=== PATIENT | female | born 1935 | race Caucasian/White ===

== ENCOUNTER 2017-10-07 18:21 | Emergency (ER) | payer MEDICARE, OTHER ==
[2017-10-07 19:00] LABS: BASOPHIL % 0.5 % (0.0-0.4); Basophil (Absolute #) 0.04 (0-0.4); Eosinophil % 7.7 % (0.00-5.0); Eosinophil (Absolute #) 0.64 (0-0.5); Granulocytes % 50.5 % (36.0-66.0); Hematocrit 34.2 % (35-47); Hemoglobin 11.5 gm/dl (12.0-16.0); Lymphocyte (Absolute #) 2.64 (1.0-4.6); Lymphocytes % 31.7 % (24.0-44.0); Mean Cell Volume 97.2 fl (78-100); Mean Corpuscular Hgb Concent. 33.6 g/dl (32-36); Mean Platelet Volume 9.8 fl (6-9.5); Monocytes % 9.6 % (0.0-12.0); Platelet Count 308 K/mm3 (150-450); Red Blood Count 3.52 M/mm3 (4.1-5.4); Red Cell Distribution Width 13.8 % (11.5-14.0); White Blood Count 8.3 K/mm3 (4.0-10.5)
[2017-10-07 19:03] LABS: Mean Corpuscular Hemoglobin 32.6 pg (26-32)
[2017-10-07 19:29] LABS: ANION GAP 16.7 MEQ/L (5-15); BILIRUBIN,TOTAL 0.5 mg/dL (0.2-1.3); Calcium 10.1 mg/dL (8.4-10.2); Creatinine 1 2.2 mg/dL (0.52-1.04); Potassium 4.1 mmol/L (3.5-5.1); Total Protein 7.8 g/dL (6.3-8.2)
[2017-10-07 19:35] LABS: Appearance CLEAR (CLEAR); Bilirubin COLOR INTERFERENCE (NEGATIVE); Blood 50 Ery/ul (0-5); Glucose NEGATIVE (NEGATIVE); Ketones COLOR INTERFERENCE (NEGATIVE); Leukocyte Esterase COLOR INTERFERENCE (NEGATIVE); Nitrite COLOR INTERFERENCE (NEGATIVE); Protein,Urine Dip COLOR INTERFERENCE (Negative); Urobilinogen COLOR INTERFERENCE mg/dL (0-1)
[2017-10-07 19:36] LABS: Bacteria FEW /HPF (NEGATIVE); Epithelial Cells FEW /HPF (FEW); Hyaline Casts 0-2 /LPF (0-2); Mucus SLIGHT /HPF (NEGATIVE); WBC 0-2 /HPF (0-5)
--- NOTE | 2017-10-07 19:36 | ERPHSYRPT ---
- History of Present Illness Time Seen by Provider: 10/07/17 18:43 Source: patient Exam Limitations: clinical condition Patient Subjective Stated Complaint: Pt states "I am having trouble urinating." Triage Nursing Assessment: Pt alert and orietented X 3, skin pwd. Pt ambulates with a slow shuffling gait. PT denied any pain, denied any burning, denied any kidney problems. Physician History: PATIENT WITH A HISTORY OF HYPERTENSION COMPLAINS OF URINARY SYMPTOMS DRIBBLING X 2-3 DAYS, DENIES ABDOMINAL PAIN, FREQUENCY, URGENCY, DYSURIA, HEMATURIA, FLANK PAIN OR FEVER. HAS URINARY INCONTINENCE UPON COUGHING. Timing/Duration: day(s) Activites at Onset: none Quality: other (INCONTINENCE) Onset Location: unknown Severity of Pain-Max: none Severity of Pain-Current: none Sexual intercourse history: non-contributory Modifying Factors: Improves With: coughing, other (INCONTINENCE) Associated Symptoms: urinary frequency Allergies/Adverse Reactions: levofloxacin [From Levaquin] Allergy (Verified 01/11/16 14:38) Penicillins Allergy (Verified 01/11/16 14:38) levothyroxine sodium [From Synthroid] Adverse Reaction (Mild, Verified 01/11/16 14:38) Hives SWELLING OF MOUTH, TONGUE ET LIPS Home Medications: Amitriptyline HCl 10 mg [Elavil 10 mg] 3 tab PO HS 03/24/14 [History] Duloxetine HCl 30 mg [Cymbalta 30 MG Capsule] 30 mg PO DAILY 03/24/14 [ History] Lorazepam [Ativan] 0.5 mg PO TIDPRN PRN 03/24/14 [History] Omeprazole 20 MG [Prilosec 20 mg] 20 mg PO DAILY 03/24/14 [History] Propranolol HCl 80 mg PO HS 03/24/14 [History] Spironolactone 25 mg [Aldactone 25 MG] 25 mg PO DAILY 03/25/14 [History] Propranolol HCl 20 mg [Inderal 20 MG] 20 mg PO DAILY 01/11/16 [History] Hx Tetanus, Diphtheria Vaccination/Date Given: Yes Hx Influenza Vaccination/Date Given: Yes Hx Pneumococcal Vaccination/Date Given: No - Review of Systems Constitutional: No Fever, No Chills Eyes: No Symptoms Ears, Nose, & Throat: No Symptoms Respiratory: No Cough, No Dyspnea Cardiac: No Chest Pain, No Edema, No Syncope Abdominal/Gastrointestinal: No Abdominal Pain, No Nausea, No Vomiting, No Diarrhea Genitourinary Symptoms: Frequency, Hesitancy, Urgency, No Dysuria Musculoskeletal: No Symptoms, No Back Pain, No Neck Pain Skin: No Symptoms, No Rash Neurological: No Symptoms, No Dizziness, No Focal Weakness, No Sensory Changes Psychological: No Symptoms Endocrine: No Symptoms All Other Systems: Reviewed and Negative - Past Medical History Pertinent Past Medical History: Yes Neurological History: Stroke, TIA ENT History: No Pertinent History Cardiac History: Hypertension Respiratory History: Bronchitis, COPD Endocrine Medical History: Hypothyroidism Musculoskeletal History: Arthritis, Fractures GI Medical History: No Pertinent History History: No Pertinent History Psycho-Social History: No Pertinent History Female Reproductive Disorders: No Pertinent History - Past Surgical History Past Surgical History: Yes Neuro Surgical History: No Pertinent History Cardiac: No Pertinent History Respiratory: No Pertinent History Gastrointestinal: Appendectomy, Cholecystectomy Genitourinary: No Pertinent History Musculoskeletal: No Pertinent History Female Surgical History: No Pertinent History - Social History Smoking Status: Never smoker Exposure to second hand smoke: No Drug Use: none Patient Lives Alone: No - Female History Hx Now: No - Nursing Vital Signs Nursing Vital Signs: Initial Vital Signs Temperature 98.0 F 10/07/17 18:30 Pulse Rate 64 10/07/17 18:30 Respiratory Rate 16 10/07/17 18:30 Blood Pressure 181/77 10/07/17 18:30 O2 Sat by Pulse Oximetry 92 L 10/07/17 18:30 Pain Scale Pain Intensity 0 - Physical Exam General Appearance: no apparent distress, alert Eye Exam: PERRL/EOMI, eyes nml inspection Ears, Nose, Throat Exam: normal ENT inspection, TMs normal, pharynx normal, moist mucous membranes Neck Exam: normal inspection, non-tender, supple, full range of motion Respiratory Exam: normal breath sounds, lungs clear, No respiratory distress Cardiovascular Exam: regular rate/rhythm, normal heart sounds, normal peripheral pulses Gastrointestinal/Abdomen Exam: soft, normal bowel sounds (NONTENDER, NO SUPRAPUBIC DISTENTION), No tenderness, No mass Back Exam: normal inspection, normal range of motion, No CVA tenderness, No vertebral tenderness Extremity Exam: normal inspection, normal range of motion, pelvis stable Neurologic Exam: alert, oriented x 3, cooperative, manager field services II-XII nml as tested, normal mood/affect, sensation nml, No motor deficits Skin Exam: normal color, warm, dry Lymphatic Exam: No adenopathy SpO2 Interpretation: borderline oxygenation SpO2: 92 Oxygen Delivery: Room Air Ordered Tests: Active Orders 24 hr Category Date Time Status Catheter-Plato Zhang STAT Care 10/07/17 18:55 Active CBC W DIFF Stat Lab 10/07/17 18:58 Completed CMP Stat Lab 10/07/17 18:58 Received UA W/RFX UR CULTURE Stat Lab 10/07/17 19:18 Received Lab/Rad Data: Laboratory Result Diagrams 10/07/17 18:58 Laboratory Results 10/07/17 Range/Units 18:58 WBC 8.3 (4.0-10.5) K/mm3 RBC 3.52 L (4.1-5.4) M/mm3 Hgb 11.5 L (12.0-16.0) gm/dl Hct 34.2 L (35-47) % MCV 97.2 (78-100) fl MCH 32.6 H (26-32) pg MCHC 33.6 (32-36) g/dl RDW 13.8 (11.5-14.0) % Plt Count 308 (150-450) K/mm3 MPV 9.8 H (6-9.5) fl Gran % 50.5 (36.0-66.0) % Eos # (Auto) 0.64 H (0-0.5) Absolute Lymphs (auto) 2.64 (1.0-4.6) Absolute Monos (auto) 0.80 (0.0-1.3) Lymphocytes % 31.7 (24.0-44.0) % Monocytes % 9.6 (0.0-12.0) % Eosinophils % 7.7 H (0.00-5.0) % Basophils % 0.5 (0.0-0.4) % Absolute Granulocytes 4.20 (1.4-6.9) Basophils # 0.04 (0-0.4) - Progress Progress Note: 10/07/17 20:10 INSERTION OF ZHANG 12 ESTONIAN Counseled pt/family regarding: lab results, diagnosis, need for follow-up - Departure Time of Disposition: 20:25 Departure Disposition: Home Clinical Impression: ACUTE URINARY RETENTION Condition: Stable Critical Care Time: No Referrals: DHRUV GRIFFIN [Primary Care Provider] - Additional Instructions: CONSULT YOUR FAMILY PHYSICIAN FOR EVALUATION TOMORROW AND REFERRAL TO A UROLOGIST. YOU CAN ALSO CALL DR SAHU A UROLOGIST IN [place], CALL OFFICE . MAINTAIN ZHANG CATHETER WITH LEG BAG UNTIL EVALUATED BY FAMILY PHYSICIAN. HAVE ZHANG CATHETER REMOVED AT 4 DAYS.
[2017-10-07 21:02] VITALS: BP 187/81; PULSE 62; O2SAT 96
== END 2017-10-07 20:57 | disposition home or self-care (01) ==
LOC: ED 18:21
DX: R33.9 Retention of urine, unspecified (principal); Z79.899 Other long term (current) drug therapy
CPT/HCPCS: 36415; 51702; 80053; 81000; 85025; 99284

== ENCOUNTER 2020-12-22 14:39 | Emergency (ER) | payer MEDICARE, OTHER ==
[2020-12-22 14:50] VITALS: BP 178/86; PULSE 68; O2SAT 91
--- NOTE | 2020-12-22 14:51 | ERPHSYRPT ---
- History of Present Illness Time Seen by Provider: 12/22/20 14:50 Source: patient, EMS, [facility] records Exam Limitations: no limitations Patient Subjective Stated Complaint: Patient states she does not remember fall. EMS states patient fell at [facility]. Paperwork shows she was under her own walker. Staff at LT facility state she was unable to answer appropriately and that she hit her head on floor. Triage Nursing Assessment: Patient arrived to ED via EMS. Patient wearing c- collar, able to straighten legs and responds to commands. Patient has hematoma L upper forehead. Physician History: This is an 85-year-old female resident of [facility]. Patient was found under her walker that she uses at the [facility]. She was a bit confused after the fall. She has a left forehead hematoma. She also complained of some lower back pain and pelvic pain. She denies chest pain. She denies abdominal pain. She denies shortness of breath. Patient arrived to the emergency department with a c-collar in place. In the emergency department patient was alert and oriented and answering questions. She is also moving her lower extremities well. Occurred: just prior to arrival Reason for Fall: tripped (Appears to have tripped over her walker) Injuries/Pain Location: head, back, pelvis, lower Loss of Consciousness: unsure Allergies/Adverse Reactions: levofloxacin [From Levaquin] Allergy (Verified 12/22/20 14:54) Penicillins Allergy (Verified 12/22/20 14:54) levothyroxine sodium [From Synthroid] Adverse Reaction (Mild, Verified 12/22/20 14:54) Hives SWELLING OF MOUTH, TONGUE ET LIPS Home Medications: Acetaminophen with Codeine [Tylenol with Codeine #3 Tablet] 1 tab PO DAILY 12/22/20 [History] Amlodipine Besylate [Norvasc] 10 mg PO DAILY 12/22/20 [History] Aspirin EC 81 mg [Ecotrin 81 mg] 81 mg PO DAILY 12/22/20 [History] Atorvastatin Calcium [Lipitor 20MG Tablet] 20 mg PO DAILY 12/22/20 [History] Docusate Sodium 100 mg [Colace 100 MG] 100 mg PO BID 12/22/20 [History] Ferrous Sulfate 1 tab PO BID 12/22/20 [History] Hydralazine HCl 50 mg PO BID 12/22/20 [History] Lisinopril 10 mg [Zestril 10 MG] 10 mg PO DAILY 12/22/20 [History] Magnesium Oxide [Magnesium] 400 mg PO DAILY 12/22/20 [History] Metformin HCl 500 mg [Glucophage 500 MG] 500 mg PO BID 12/22/20 [History] Multivits,Th W-Fe,Other Min [Thera-M] 1 tab PO DAILY 12/22/20 [History] PANTOPRAZOLE 40 mg Tablet [Protonix 40MG Tablet] 40 mg PO DAILY 12/22/20 [History] Sertraline HCl 50 mg [Zoloft 50 mg Tablet] 50 mg PO DAILY 12/22/20 [History] Sitagliptin Phosphate [Januvia] 25 mg PO DAILY 12/22/20 [History] Sodium Bicarbonate 650 mg PO BID 12/22/20 [History] Hx Tetanus, Diphtheria Vaccination/Date Given: Yes Hx Influenza Vaccination/Date Given: Yes Hx Pneumococcal Vaccination/Date Given: No Travel Risk - International Travel Have you traveled outside of the country in past 3 weeks: No - Coronavirus Screening Are you exhibiting any of the following symptoms?: No Close contact with a COVID-19 positive Pt in past 14-21 Days: No - Vaccine Status Have you recieved a Covid-19 vaccination: (unknown) - Review of Systems Constitutional: No Symptoms Eyes: No Symptoms Ears, Nose, & Throat: No Symptoms Respiratory: No Symptoms Cardiac: No Symptoms Abdominal/Gastrointestinal: No Symptoms Genitourinary Symptoms: No Symptoms Musculoskeletal: Fall, Injury (Head lower back) Skin: No Symptoms Neurological: No Symptoms Psychological: No Symptoms Endocrine: No Symptoms Hematologic/Lymphatic: No Symptoms Immunological/Allergic: No Symptoms All Other Systems: Reviewed and Negative - Past Medical History Pertinent Past Medical History: Yes Neurological History: Stroke, TIA ENT History: No Pertinent History Cardiac History: Hypertension Respiratory History: Bronchitis, COPD Endocrine Medical History: Hypothyroidism Musculoskeletal History: Arthritis, Fractures GI Medical History: No Pertinent History History: No Pertinent History Psycho-Social History: No Pertinent History Female Reproductive Disorders: No Pertinent History - Past Surgical History Past Surgical History: Yes Neuro Surgical History: No Pertinent History Cardiac: No Pertinent History Respiratory: No Pertinent History Gastrointestinal: Appendectomy, Cholecystectomy Genitourinary: No Pertinent History Musculoskeletal: No Pertinent History Female Surgical History: No Pertinent History - Social History Smoking Status: Never smoker Exposure to second hand smoke: No Drug Use: none Patient Lives Alone: No - Female History Hx Now: No (age) - Nursing Vital Signs Nursing Vital Signs: Initial Vital Signs Temperature 97.4 F 12/22/20 14:40 Pulse Rate 68 12/22/20 14:40 Blood Pressure 178/86 12/22/20 14:40 O2 Sat by Pulse Oximetry 91 L 12/22/20 14:40 Pain Scale Pain Intensity 0 - [place] Coma Score Best Eye Response (Leslie): (4) open spontaneously Best Verbal Response (Leslie): (5) oriented Best Motor Response ([place]): (6) obeys commands [place] Total: 15 - Physical Exam General Appearance: no apparent distress, alert, anxiety Head Injury: contusions, swelling (Left forehead) Eye Exam: PERRL/EOMI, eyes nml inspection ENT Exam: airway nml, nml ext.inspection, No evidence of ENT injury Neck Exam: trachea midline, c-collar in place Respiratory/Chest Exam: normal breath sounds, No chest tenderness, No respiratory distress, No ecchymosis, No crepitus Cardiovascular Exam: normal heart sounds, regular rate/rhythm, normal peripheral pulses Gastrointestinal Exam: soft, normal bowel sounds, No tenderness Rectal Exam: not done Back Exam: normal inspection, normal range of motion, No CVA tenderness, No vertebral tenderness Extremity Exam: normal inspection, normal range of motion, pelvis stable, No capillary refill <3 sec Neurologic Exam: alert, oriented x 3, cooperative, sealer dry cell II-XII nml as tested, normal mood/affect, sensation nml Skin Exam: normal color, warm, dry SpO2 Interpretation: borderline oxygenation SpO2: 91 O2 Delivery: Room Air - Course Nursing assessment & vital signs reviewed: Yes EKG Interpreted by Me: RATE Ordered Tests: Active Orders 24 hr Category Date Time Status CERVICAL SPINE WO CONTRAST [CT] Stat Exams 12/22/20 15:11 Completed HEAD WITHOUT CONTRAST [CT] Stat Exams 12/22/20 14:51 Completed LUMBAR SPINE W/O [CT] Stat Exams 12/22/20 15:11 Completed PELVIS WITHOUT CONTRAST [CT] Routine Exams 12/22/20 15:14 Completed - Progress Progress: improved, pain not gone completely, re-examined Progress Note: 12/22/20 15:53 CAT scan of the pelvis without contrast shows no acute fracture or dislocation. CAT scan of the cervical spine without contrast reveals no acute fracture or subluxation. CAT scan of the lumbar spine reveals no evidence of any acute fracture or subluxation. CAT scan of the head without contrast reveals a small left frontal scalp hematoma. There is nonacute senile brain with remote left basal ganglia lacunar infarct. No acute intracranial findings. 12/22/20 15:54 Counseled pt/family regarding: diagnosis, need for follow-up, rad results - Departure Departure Disposition: Home Clinical Impression: Fall with injury, Scalp hematoma Condition: Stable Critical Care Time: No Referrals: ELDER PEÑA [Primary Care Provider] - Additional Instructions: Resume same [facility] orders. Follow-up with primary care doctor on an as- needed basis.
--- NOTE | 2020-12-22 15:39 | XRAY ---
Indication: Found on custodial floor. Multiple contiguous axial images obtained through the cervical spine. Sagittal and coronal reformatted images obtained. Comparison: None. Age-related osteopenia. Axial images negative for acute fracture, suspicious bony lesions, or spinal canal stenosis. Mild/moderate multilevel degenerative endplate spurring throughout. Also mild atlantoaxial degenerative arthropathy and mild/moderate multilevel bilateral degenerative facet hypertrophy. Sagittal and coronal reformatted images demonstrates lordotic reversal and multilevel degenerative disc space loss. 3-4 mm C4 anterolisthesis on C5 and 1-2 mm anterolisthesis of T1 on T2 on T3 on T4. No acute compression fracture or jumped facet. Visualized noncontrasted soft tissues including on apices unremarkable. Impression: 1. Osteopenia and multilevel degenerative spondylosis including minimal multilevel grade 1 spondylolisthesis. 2. Cervical lordotic reversal, positional versus paraspinal spasm. 3. No acute fracture.
--- NOTE | 2020-12-22 15:40 | XRAY ---
Indication: Found on senior care floor. Multiple contiguous axial images obtained through the head without contrast. Comparison: January 12, 2016. There remains age-appropriate global atrophy and remote left basal ganglia lacunar infarcts. Progressive worsening mild/moderate periventricular degenerative micro-ischemia bilaterally. No acute intracranial hemorrhage, abnormal extra-axial fluid collection, or mass effect. New small left frontal scalp hematoma near the vertex. Bony calvarium intact. Visualized paranasal sinuses and mastoid air cells are clear. Impression: Small left frontal scalp hematoma. Continued nonacute senile brain with remote left basal ganglia lacunar infarcts.
--- NOTE | 2020-12-22 15:41 | XRAY ---
Indication: Found on intermediate floor. Multiple contiguous axial images obtained through the lumbar spine. Sagittal and coronal reformatted images obtained. Comparison: None. Age-related osteopenia. Axial images negative for acute fracture, suspicious bony lesions, or spinal canal stenosis. Mild/moderate multilevel broad-based degenerative disc bulge with vacuum disc phenomena throughout. Also L3-S1 bilateral degenerative facet hypertrophy. Sagittal and coronal reformatted images demonstrates normal lumbar lordosis with multilevel disc space narrowing greatest at L5-S1. 1-2 mm anterolisthesis of L4 on L5. Mild levoscoliosis centered L3. No acute compression fracture. Visualized noncontrasted soft tissues demonstrates mild scattered aortoiliac calcifications and sigmoid diverticulosis. Impression: 1. Negative acute fracture. 2. Osteopenia, multilevel degenerative spondylosis including grade 1 L4 spondylolisthesis, and levoscoliosis.
--- NOTE | 2020-12-22 15:47 | XRAY ---
Indication: Found on jail floor. Multiple contiguous axial images obtained through the pelvis. Sagittal and coronal reformatted images obtained. Comparison: None. Age-related osteopenia. No acute fracture, dislocation, or suspicious bony lesions. Both hips demonstrates mild/moderate degenerative arthropathy with lateral left hip chunky heterotopic ossification. Visualized noncontrasted soft tissues demonstrates colonic diverticulosis and scattered vascular calcifications. No ventral or inguinal hernias. CT lumbar spine reported separately. Impression: 1. Negative acute fracture/dislocation. 2. Osteopenia and bilateral hip degenerative arthropathy. 3. Colonic diverticulosis and scattered arteriosclerotic calcifications.
== END 2020-12-22 16:05 | disposition home or self-care (01) ==
LOC: ED 14:39
DX: S00.03XA Contusion of scalp, initial encounter (principal); W18.09XA Striking against other object with subsequent fall, initial encounter; Y93.89 Activity, other specified; Y92.129 Unspecified place in nursing home as the place of occurrence of the external cause
CPT/HCPCS: 70450; 72125; 72131; 72192; 99284

== ENCOUNTER 2021-02-01 22:32 | Emergency (ER) | payer MEDICARE, OTHER ==
--- NOTE | 2021-02-01 22:52 | ERPHSYRPT ---
- History of Present Illness Time Seen by Provider: 02/01/21 22:52 Source: patient, EMS Exam Limitations: no limitations Physician History: This is an 85-year-old white female patient/resident at [facility] who had an unwitnessed fall and hit her head. Patient also had a skin tear of her left hand/thumb. Because of the fall and the skin tear of the left hand, the patient was sent here for evaluation. Upon arrival to the emergency department by EMS service, the patient has sole complaint of a right forehead pain. She has no neck pain. She has no chest pain. She has no shortness of breath. She has no complaints of pain anywhere else on her body. She has no abdominal pain. Occurred: just prior to arrival Reason for Fall: unknown Injuries/Pain Location: head, upper extremity (Left hand skin tear) Loss of Consciousness: unsure Quality: aching (Right forehead) Severity of Pain-Max: mild Severity of Pain-Current: mild Associated Symptoms (Fall): headache (Right forehead), No abdominal pain, No back pain, No confusion, No chest pain, No dizziness, No neck pain Allergies/Adverse Reactions: levofloxacin [From Levaquin] Allergy (Verified 12/22/20 14:54) Penicillins Allergy (Verified 12/22/20 14:54) levothyroxine sodium [From Synthroid] Adverse Reaction (Mild, Verified 12/22/20 14:54) Hives SWELLING OF MOUTH, TONGUE ET LIPS Home Medications: Acetaminophen with Codeine [Tylenol with Codeine #3 Tablet] 1 tab PO DAILY 12/22/20 [History] Amlodipine Besylate [Norvasc] 10 mg PO DAILY 12/22/20 [History] Aspirin EC 81 mg [Ecotrin 81 mg] 81 mg PO DAILY 12/22/20 [History] Atorvastatin Calcium [Lipitor 20MG Tablet] 20 mg PO DAILY 12/22/20 [History] Docusate Sodium 100 mg [Colace 100 MG] 100 mg PO BID 12/22/20 [History] Ferrous Sulfate 1 tab PO BID 12/22/20 [History] Hydralazine HCl 50 mg PO BID 12/22/20 [History] Lisinopril 10 mg [Zestril 10 MG] 10 mg PO DAILY 12/22/20 [History] Magnesium Oxide [Magnesium] 400 mg PO DAILY 12/22/20 [History] Metformin HCl 500 mg [Glucophage 500 MG] 500 mg PO BID 12/22/20 [History] Multivits,Th W-Fe,Other Min [Thera-M] 1 tab PO DAILY 12/22/20 [History] PANTOPRAZOLE 40 mg Tablet [Protonix 40MG Tablet] 40 mg PO DAILY 12/22/20 [History] Sertraline HCl 50 mg [Zoloft 50 mg Tablet] 50 mg PO DAILY 12/22/20 [History] Sitagliptin Phosphate [Januvia] 25 mg PO DAILY 12/22/20 [History] Sodium Bicarbonate 650 mg PO BID 12/22/20 [History] Hx Tetanus, Diphtheria Vaccination/Date Given: Yes Hx Influenza Vaccination/Date Given: Yes Hx Pneumococcal Vaccination/Date Given: No Travel Risk - International Travel Have you traveled outside of the country in past 3 weeks: No - Coronavirus Screening Are you exhibiting any of the following symptoms?: No Close contact with a COVID-19 positive Pt in past 14-21 Days: No - Vaccine Status Have you recieved a Covid-19 vaccination: (unknown) - Review of Systems Constitutional: No Symptoms Eyes: No Symptoms Ears, Nose, & Throat: No Symptoms Respiratory: No Symptoms Cardiac: No Symptoms Abdominal/Gastrointestinal: No Symptoms Genitourinary Symptoms: No Symptoms Musculoskeletal: Fall Skin: Other (Skin tear left hand) Neurological: Headache (Right forehead) Psychological: No Symptoms Endocrine: No Symptoms Hematologic/Lymphatic: No Symptoms Immunological/Allergic: No Symptoms All Other Systems: Reviewed and Negative - Past Medical History Pertinent Past Medical History: Yes Neurological History: Stroke, TIA ENT History: No Pertinent History Cardiac History: Hypertension Respiratory History: Bronchitis, COPD Endocrine Medical History: Hypothyroidism Musculoskeletal History: Arthritis, Fractures GI Medical History: No Pertinent History History: No Pertinent History Psycho-Social History: No Pertinent History Female Reproductive Disorders: No Pertinent History - Past Surgical History Past Surgical History: Yes Neuro Surgical History: No Pertinent History Cardiac: No Pertinent History Respiratory: No Pertinent History Gastrointestinal: Appendectomy, Cholecystectomy Genitourinary: No Pertinent History Musculoskeletal: No Pertinent History Female Surgical History: No Pertinent History - Social History Smoking Status: Never smoker Exposure to second hand smoke: No Drug Use: none Patient Lives Alone: No - Nursing Vital Signs Nursing Vital Signs: Initial Vital Signs Temperature 97.4 F 02/01/21 22:37 Pulse Rate 79 02/01/21 22:37 Respiratory Rate 18 02/01/21 22:37 Blood Pressure 156/67 02/01/21 22:37 O2 Sat by Pulse Oximetry 96 02/01/21 22:37 Pain Scale Pain Intensity 6 - Leslie Coma Score Best Eye Response ([place]): (4) open spontaneously Best Verbal Response ([place]): (5) oriented Best Motor Response ([place]): (6) obeys commands [place] Total: 15 - Physical Exam General Appearance: no apparent distress, alert, anxiety Head Injury: no evidence of injury Eye Exam: PERRL/EOMI, eyes nml inspection ENT Exam: airway nml, nml ext.inspection, No evidence of ENT injury, No dental injury Neck Exam: supple, trachea midline, full range of motion, normal alignment, normal inspection Respiratory/Chest Exam: normal breath sounds, No chest tenderness, No respiratory distress, No ecchymosis, No crepitus Cardiovascular Exam: normal heart sounds, regular rate/rhythm Gastrointestinal Exam: soft, normal bowel sounds, No tenderness Rectal Exam: not done Back Exam: normal inspection, normal range of motion, No CVA tenderness, No vertebral tenderness Extremity Exam: normal range of motion, capillary refill <3 sec, pelvis stable, other (Skin tear to left thumb. No tenderness present) Neurologic Exam: alert, cooperative, wildland fire operations specialist II-XII nml as tested, sensation nml Skin Exam: other (Skin tear left thumb) SpO2 Interpretation: normal O2 Delivery: Room Air - Course Nursing assessment & vital signs reviewed: Yes Ordered Tests: Active Orders 24 hr Category Date Time Status CERVICAL SPINE WO CONTRAST [CT] Stat Exams 02/01/21 23:32 Ordered HEAD WITHOUT CONTRAST [CT] Stat Exams 02/01/21 23:28 Ordered - Progress Progress Note: 02/02/21 00:35 CAT scan of the head without contrast shows no evidence of any acute intracranial injury. There is no evidence of any acute major vessel infarct, mass-effect or hemorrhage. There are age-related involutional changes noted - Departure Departure Disposition: Extended Care Facility Clinical Impression: Fall, Head injury, Skin tear, Fall with no significant injury Condition: Stable Critical Care Time: No Referrals: ELDER PEÑA [Primary Care Provider] - Additional Instructions: Routine skin tear care at [facility]. Continue same medication and care plan.
[2021-02-01 23:42] VITALS: BP 150/70; PULSE 82; O2SAT 95
--- NOTE | 2021-02-02 08:53 | XRAY ---
Indication: Injury following fall. Multiple contiguous axial images obtained through the head without contrast. Comparison: December 22, 2020. There remains age-appropriate global atrophy, moderate periventricular degenerative micro-ischemia, and remote left basal ganglia lacunar infarcts. No acute intracranial hemorrhage, abnormal extra-axial fluid collection, or mass effect. Fourth ventricle is midline without hydrocephalus. Bony calvarium intact. Visualized paranasal sinuses and mastoid air cells are clear. Impression: Continued nonacute senile brain with remote left basal ganglia lacunar infarcts. Comment: Preliminary interpretation made by [facility]. No critical discrepancy.
--- NOTE | 2021-02-02 08:57 | XRAY ---
Indication: Injury following fall. Multiple contiguous axial images obtained through the cervical spine. Sagittal and coronal reformatted images obtained. Comparison: December 22, 2020. There remains age-related osteopenia, mild/moderate multilevel degenerative endplate spurring, atlantoaxial degenerative arthropathy, and moderate multilevel bilateral degenerative facet hypertrophy. Continued negative for acute fracture, suspicious bony lesions, or spinal canal stenosis. Sagittal and coronal reformatted images again demonstrates slight lordotic reversal with multilevel degenerative disc space loss and minimal grade 1 anterolisthesis of C5/T1/T2. No acute compression fracture or jumped facet. Normal appearing craniocervical junction. Visualized noncontrasted soft tissues again demonstrates mild bilateral carotid calcifications and small right thyroid hypodense nodules/cysts. Lung apices are clear. Impression: 1. Continued negative acute fracture. 2. Again incidental osteopenia, multilevel degenerative spondylosis, and minimal multilevel grade 1 spondylolisthesis. Comment: Preliminary interpretation made by C. No critical discrepancy.
== END 2021-02-02 01:10 | disposition home or self-care (01) ==
LOC: ED 22:32
DX: S09.90XA Unspecified injury of head, initial encounter (principal); W18.30XA Fall on same level, unspecified, initial encounter; Y93.9 Activity, unspecified; Y92.9 Unspecified place or not applicable; Y99.9 Unspecified external cause status; S61.412A Laceration without foreign body of left hand, initial encounter; Z79.899 Other long term (current) drug therapy; J44.9 Chronic obstructive pulmonary disease, unspecified; E03.9 Hypothyroidism, unspecified
CPT/HCPCS: 70450; 72125; 99284